=== PATIENT | female | born 1960 | race Caucasian/White ===

== ENCOUNTER 2019-06-20 22:35 | Emergency (ER) | payer BC ==
[~2019-06-20] VITALS: Ht 162.6 cm; Wt 72.6 kg
[2019-06-20 23:17] LABS: BILIRUBIN,URINE NEGATIVE (NEG); CLARITY,URINE CLEAR; COLOR,URINE YELLOW; NITRITE,URINE NEGATIVE (NEG); PROTEIN,URINE NEGATIVE (NEG-TRACE)
[2019-06-20 23:22] LABS: BACTERIA,URINE FEW /HPF (0-FEW); SQUAMOUS EPITHELIAL CELL,UR MOD /LPF
[2019-06-20] MEDS ORDERED: KETOROLAC 15 MG/ML VIAL. ONE (23:28)
[2019-06-20] MEDS ORDERED: KETOROLAC 15 MG/ML VIAL. IV ONE (23:30)
[2019-06-20] MEDS ORDERED: IV NORMAL SALINE 1000ML BAG 1,000 ML IV ONE (23:30)
--- NOTE | 2019-06-20 23:30 | PHYS DOC ---
Past Medical History Past Medical History: Arthritis, Fibromyalgia, IBS Past Surgical History: Hysterectomy, Oophorectomy Additional Past Surgical Histo: Skin CA removal, lumpectomy of foot Alcohol Use: Rarely Drug Use: None Adult General Chief Complaint Chief Complaint: BLOODY STOOL HPI HPI Ms. Aparciio is a 59yo M w/ PMH significant for IBS, fibromyalgia, and left renal caliculi presents w/ left flank pain and bloody stool. The left flank pain woke the patient up at 3 AM. She admits to having "light pink urine" and pain on urination of 1 day duration. She experienced pencil-thin stool with blood this evening; denies blood pooling in the toilet. Colonoscopy performed 4 years ago was negative. Reports history of hemorrhoids but denies recent constipation and straining. She is also experiencing left-sided moderate abdominal pain of 1 day duration that does not radiate. She had a CT scan performed on Monday to monitor a 10mm left kidney stone located in the superior pole, but has not heard back regarding the results. Review of Systems Review of Systems Constitutional: Denies fever or chills Eyes: Denies redness or eye pain HENT: Denies nasal congestion or sore throat Respiratory: Denies cough or shortness of breath Cardiovascular: Denies chest pain or palpitations GI: Reports left-sided abdominal pain, hematochezia. Denies nausea, vomiting. : Reports dysuria and hematuria. Musculoskeletal: Denies back pain or joint pain Integument: Denies rash or skin lesions Neurologic: Denies headache, focal weakness or sensory changes Complete systems were reviewed and found to be within normal limits, except as documented in this note. Current Medications Current Medications Current Medications Medications (Trade) Dose Ordered Sig/Gianfranco Start Time Stop Time Status Last Admin Dose Admin Ketorolac Tromethamine (Toradol 15mg Vial) 15 mg STK-MED ONCE 06/20/19 23:28 06/20/19 23:28 DC Sodium Chloride 1,000 ml @ 1,000 mls/hr 1X ONCE 06/20/19 23:30 06/21/19 00:29 DC 06/20/19 23:33 1,000 MLS/HR Tamsulosin HCl (Flomax) 0.4 mg 1X ONCE 06/21/19 00:45 06/21/19 00:46 DC 06/21/19 00:43 0.4 MG Allergies Allergies Allergies Coded Allergies Type Severity Reaction Last Updated Verified aspirin Allergy Mild 06/20/19 Yes Physical Exam Physical Exam Constitutional: Well developed, well nourished, no acute distress, non-toxic appearance HENT: Normocephalic, atraumatic, oropharynx moist Eyes: PERRL, EOMI, conjunctiva normal, no discharge Neck: Normal range of motion, no tenderness, supple Cardiovascular: Heart rate normal, regular rhythm Lungs & Thorax: Bilateral breath sounds clear to auscultation, no wheezing Abdomen: Soft, non-distended, BS x4 quadrants, LLQ tenderness Rectal: global sourcing manager RN, no external hemorrhoids noted, no blood on digital rectal exam, no definitive internal hemorrhoid appreciated Skin: Warm, dry, no erythema, no rash Back: No tenderness, left CVA tenderness Extremities: No tenderness, ROM intact, no edema Neurologic: Alert and oriented X 3, normal motor function, normal sensory function, no focal deficits noted Psychologic: Affect normal, judgement normal, mood normal Current Patient Data Vital Signs Vital Signs Date Time Temp Pulse Resp B/P (MAP) Pulse Ox O2 Delivery O2 Flow Rate FiO2 06/20/19 23:54 74 17 135/63 (87) 98 Room Air 06/20/19 22:48 97.9 97.9 Lab Values Laboratory Tests Test 06/20/19 22:45 06/20/19 23:04 Urine Collection Type Unknown Urine Color Yellow Urine Clarity Clear Urine pH 5.0 Urine Specific [place] 1.025 Urine Protein Negative mg/dL (NEG-TRACE) Urine Glucose (UA) Negative mg/dL (NEG) Urine Ketones (Stick) Negative mg/dL (NEG) Urine Blood Moderate (NEG) Urine Nitrite Negative (NEG) Urine Bilirubin Negative (NEG) Urine Urobilinogen Dipstick 1.0 mg/dL (0.2 mg/dL) Urine Leukocyte Esterase Negative (NEG) Urine RBC 11-20 /HPF (0-2) Urine WBC 1-4 /HPF (0-4) Urine Squamous Epithelial Cells Mod /LPF Urine Bacteria Few /HPF (0-FEW) Urine Mucus Mod /LPF White Blood Count 8.0 x10^3/uL (4.0-11.0) Red Blood Count 4.45 x10^6/uL (3.50-5.40) Hemoglobin 13.8 g/dL (12.0-15.5) Hematocrit 40.4 % (36.0-47.0) Mean Corpuscular Volume 91 fL (79-100) Mean Corpuscular Hemoglobin 31 pg (25-35) Mean Corpuscular Hemoglobin Concent 34 g/dL (31-37) Red Cell Distribution Width 14.2 % (11.5-14.5) Platelet Count 264 x10^3/uL (140-400) Neutrophils (%) (Auto) 58 % (31-73) Lymphocytes (%) (Auto) 32 % (24-48) Monocytes (%) (Auto) 8 % (0-9) Eosinophils (%) (Auto) 1 % (0-3) Basophils (%) (Auto) 0 % (0-3) Neutrophils # (Auto) 4.6 x10^3/uL (1.8-7.7) Lymphocytes # (Auto) 2.6 x10^3/uL (1.0-4.8) Monocytes # (Auto) 0.6 x10^3/uL (0.0-1.1) Eosinophils # (Auto) 0.1 x10^3/uL (0.0-0.7) Basophils # (Auto) 0.0 x10^3/uL (0.0-0.2) Sodium Level 144 mmol/L (136-145) Potassium Level 3.4 mmol/L (3.5-5.1) L Chloride Level 105 mmol/L (98-107) Carbon Dioxide Level 27 mmol/L (21-32) Anion Gap 12 (6-14) Blood Urea Nitrogen 14 mg/dL (7-20) Creatinine 0.9 mg/dL (0.6-1.0) Estimated GFR (Cockcroft-Gault) 64.3 BUN/Creatinine Ratio 16 (6-20) Glucose Level 122 mg/dL (70-99) H Calcium Level 9.1 mg/dL (8.5-10.1) Magnesium Level 2.1 mg/dL (1.8-2.4) Total Bilirubin 0.3 mg/dL (0.2-1.0) Aspartate Amino Transferase (AST) 24 U/L (15-37) Alanine Aminotransferase (ALT) 53 U/L (14-59) Alkaline Phosphatase 71 U/L (46-116) Total Protein 7.8 g/dL (6.4-8.2) Albumin 4.1 g/dL (3.4-5.0) Albumin/Globulin Ratio 1.1 (1.0-1.7) Lipase 105 U/L (73-393) Laboratory Tests 06/20/19 23:04 Laboratory Tests 06/20/19 23:04 EKG EKG [] Radiology/Procedures Radiology/Procedures CT Abdomen & Pelvis w/o Contrast: 1. Left-sided hydronephrosis and hydroureter with a distal ureter stone. There are additional nonobstructive left renal stones.[] Course & Med Decision Making Course & Med Decision Making Pertinent Labs and Imaging studies reviewed. (See chart for details) Patient presented with left-sided abdominal pain, hematuria, and bloody stool. Abdominal CT revealed left distal ureteral stone and left renal caliculi. Rectal exam was unrevealing. Patient stable for discharge with outpatient follow-up with PCP. Discussed findings and plan with patient and family, who acknowledge understanding and agreement. [] Dragon Disclaimer Dragon Disclaimer This electronic medical record was generated, in whole or in part, using a voice recognition dictation system. Departure Departure Impression: Primary Impression: Kidney stone on left side Additional Impression: Rectal bleeding Disposition: HOME, SELF-CARE Condition: STABLE Referrals: CELIA FLETCHER MD (PCP) ANGELICA GALVIN MD Patient Instructions: Diet for Kidney Stones, Kidney Stones, [id number], Rectal Bleeding, [id number] Scripts Hydrocortisone Acetate (ANUSOL-HC) 25 Mg Supp.rect 1 SUPP RC BID PRN for rectal bleeding, #14 SUPP Prov: JAZLYN LIANG DO 06/21/19 Tamsulosin Hcl (FLOMAX) 0.4 Mg Cap.er.24h 1 CAP PO DAILY, #7 CAP Prov: JAZLYN LIANG DO 06/21/19 Acetaminophen With Codeine (TYLENOL WITH CODEINE #3 TABLET) 1 Each Tablet 1 TAB PO PRN Q6HRS PRN for PAIN, #10 TAB Prov: JAZLYN LIANG DO 06/21/19 Ondansetron (ONDANSETRON ODT) 4 Mg Tab.rapdis 1 TAB PO PRN Q6-8HRS PRN for NAUSEA, #16 TAB Prov: JAZLYN LIANG DO 06/21/19 Problem Qualifiers JAZLYN LIANG DO Jun 20, 2019 23:30
[2019-06-20 23:32] LABS: BASO % 0 % (0-3); EOS # 0.1 x10^3/uL (0.0-0.7); EOS % 1 % (0-3); HEMATOCRIT 40.4 % (36.0-47.0); HEMOGLOBIN 13.8 g/dL (12.0-15.5); LYMPH # 2.6 x10^3/uL (1.0-4.8); LYMPH % 32 % (24-48); MEAN CORPUSCULAR HEMOGLOBIN 31 pg (25-35); MEAN CORPUSCULAR HGB CONC 34 g/dL (31-37); MEAN CORPUSCULAR VOLUME 91 fL (79-100); MONO # 0.6 x10^3/uL (0.0-1.1); MONO % 8 % (0-9); NEUT # 4.6 x10^3/uL (1.8-7.7); NEUT % 58 % (31-73); PLATELET COUNT 264 x10^3/uL (140-400); RED BLOOD COUNT 4.45 x10^6/uL (3.50-5.40); RED CELL DISTRIBUTION WIDTH 14.2 % (11.5-14.5)
[2019-06-20 23:45] LABS: CALCIUM 9.1 mg/dL (8.5-10.1); CREATININE 0.9 mg/dL (0.6-1.0); GFR 64.3; POTASSIUM 3.4 mmol/L (3.5-5.1)
[2019-06-20 23:50] LABS: ALBUMIN 4.1 g/dL (3.4-5.0); ALBUMIN/GLOBULIN RATIO 1.1 (1.0-1.7); MAGNESIUM 2.1 mg/dL (1.8-2.4); TOTAL BILIRUBIN 0.3 mg/dL (0.2-1.0); TOTAL PROTEIN 7.8 g/dL (6.4-8.2)
--- NOTE | 2019-06-21 00:21 | RAD ---
INDICATION: Abdominal pain and hematochezia COMPARISON: November 2016 TECHNIQUE: Axial CT images obtained through the abdomen and pelvis without contrast. Limited assessment of solid organ structures and vasculature secondary to lack of intravenous contrast.. One or more of the following individualized dose reduction techniques were utilized for this examination: 1. Automated exposure control; 2. Adjustment of the mA and/or kV according to patient size; 3. Use of iterative reconstruction technique. FINDINGS: Abdominal aorta is not aneurysmal. Scattered calcified plaque. No intrahepatic bile duct dilation. Postcholecystectomy. No peripancreatic fluid collection. Spleen unremarkable. Multiple large left renal stones. Left-sided hydronephrosis and hydroureter with 5 mm left ureterovesicular junction stone. No right-sided hydronephrosis. Urinary bladder is largely decompressed. Appendix is partially seen without definite adjacent inflammatory changes or a portion is obscured. No dilated loops of bowel to suggest obstruction. Degenerative changes the spine. There is some mild haziness to the mesentery with scattered lymph nodes in the region. Degenerative changes throughout the spine. IMPRESSION: 1. Left-sided hydronephrosis and hydroureter with a distal ureter stone. There are additional nonobstructive left renal stones. Electronically signed by: Edouard Escalona MD (06/21/2019 12:18 AM) [facility]
[2019-06-21] MEDS ORDERED: TAMSULOSIN 0.4 MG CAP.ER.24H. PO ONE (00:45)
[2019-06-21] MEDS ORDERED: HYDR25SU18 RC (00:50)
[2019-06-21] MEDS ORDERED: ACET-704 PO (00:50)
[2019-06-21] MEDS ORDERED: ONDA4TAB12 PO (00:50)
[2019-06-21] MEDS ORDERED: TAMS0.4C97 PO (00:50)
[2019-06-21 00:57] VITALS: BP 146/89
== END 2019-06-21 00:50 | disposition home or self-care (01) ==
LOC: ER 22:35
DX: N13.2 Hydronephrosis with renal and ureteral calculous obstruction (principal); K62.5 Hemorrhage of anus and rectum; K58.9 Irritable bowel syndrome, unspecified; Z90.710 Acquired absence of both cervix and uterus; Z90.722 Acquired absence of ovaries, bilateral; Z88.6 Allergy status to analgesic agent
CPT/HCPCS: 36415; 74176; 80053; 81001; 83690; 83735; 85025; 96374; 99285; J1885; J7030